=== PATIENT | male | born 1950 | race Caucasian/White ===

== ENCOUNTER → 2019-08-08 | Outpatient (CLI) | payer MEDICARE | END | disposition home or self-care (01) | LOC: CFH 13:19 | PROVIDERS: ATTEND Internal Medicine Hematology & Oncology | DX: C34.11 Malignant neoplasm of upper lobe, right bronchus or lung (principal); R59.1 Generalized enlarged lymph nodes; R91.8 Other nonspecific abnormal finding of lung field | CPT/HCPCS: 71250 ==

== ENCOUNTER 2019-10-03 08:07 | Outpatient (CLI) | payer MEDICARE | END 2019-10-03 23:59 | disposition home or self-care (01) | LOC: ROC 08:07 | PROVIDERS: ATTEND Radiology Radiation Oncology | DX: C34.11 Malignant neoplasm of upper lobe, right bronchus or lung (principal) | CPT/HCPCS: 99214; G0463 ==

== ENCOUNTER → 2019-12-02 | Outpatient (CLI) | payer MEDICARE ==
[~2019-12-02] MED LIST: OMNIPAQUE 350 MG/ML, 75ML BOTTLE ONE
== END | disposition home or self-care (01) ==
LOC: CFH 10:05
PROVIDERS: ATTEND Internal Medicine Hematology & Oncology
DX: C34.11 Malignant neoplasm of upper lobe, right bronchus or lung (principal); R91.8 Other nonspecific abnormal finding of lung field
CPT/HCPCS: 71260; 82565; Q9967

== ENCOUNTER 2020-01-16 07:38 | Outpatient (CLI) | payer MEDICARE | END 2020-01-16 23:59 | disposition home or self-care (01) | LOC: ROC 07:38 | PROVIDERS: ATTEND Radiology Radiation Oncology | DX: C34.91 Malignant neoplasm of unspecified part of right bronchus or lung (principal) | CPT/HCPCS: 99212; G0463 ==

== ENCOUNTER → 2020-04-03 | Outpatient (CLI) | payer MEDICARE | END | disposition home or self-care (01) | LOC: RAD 12:21 | PROVIDERS: ATTEND Internal Medicine Hematology & Oncology | DX: C34.11 Malignant neoplasm of upper lobe, right bronchus or lung (principal); J43.9 Emphysema, unspecified; J98.4 Other disorders of lung; R91.1 Solitary pulmonary nodule; I70.8 Atherosclerosis of other arteries; I25.10 Atherosclerotic heart disease of native coronary artery without angina pectoris | CPT/HCPCS: 71260; Q9967 ==

== ENCOUNTER 2020-04-27 07:34 | Day surgery (SDC) | payer MEDICARE ==
[~2020-04-27] VITALS: Ht 162.6 cm; Wt 62.0 kg
[2020-04-27 08:12] VITALS: BP 143/91
[2020-04-27] MEDS ORDERED: FLUT1BLS3 IH (08:12)
[2020-04-27] MEDS ORDERED: LOSA25TA25 PO (08:12)
[2020-04-27] MEDS ORDERED: METOPROLOL PO (08:12)
[2020-04-27] MEDS ORDERED: PLEASE ENTER HEIGHT AND WEIGHT MC SCH (08:30)
[2020-04-27] MEDS ORDERED: SODIUM CHLORIDE 0.9% 1,000 ML IV SCH (08:30)
[2020-04-27] MEDS ORDERED: LIDOCAINE 1%, 20ML ONE (08:47)
[2020-04-27] MEDS ORDERED: MIDAZOLAM 1 MG/ML, 5ML ONE (09:10)
[2020-04-27] MEDS ORDERED: FENTANYL PF 100 MCG/2ML ONE ×2 (09:10)
[2020-04-27] MEDS ORDERED: FLUMAZENIL 0.1 MG/1 ML, 5ML ONE (09:10)
[2020-04-27] MEDS ORDERED: NALOXONE 1 MG/ML, 2ML ONE (09:11)
== END 2020-04-27 11:00 | disposition home or self-care (01) ==
LOC: OUT 07:34
PROVIDERS: ATTEND Internal Medicine Hematology & Oncology
DX: Z45.2 Encounter for adjustment and management of vascular access device (principal); C34.11 Malignant neoplasm of upper lobe, right bronchus or lung; I10 Essential (primary) hypertension; J44.9 Chronic obstructive pulmonary disease, unspecified; Z79.899 Other long term (current) drug therapy; Z87.891 Personal history of nicotine dependence; Z88.8 Allergy status to other drugs, medicaments and biological substances
CPT/HCPCS: 36590; 77001; 99156; 99157; J2250; J3010; J7030; J2310

== ENCOUNTER 2020-09-16 11:11 | Outpatient (CLI) | payer MEDICARE ==
[~2020-09-16 11:11] MED LIST changes: +FLUT1BLS3 IH; +LOSA25TA25 PO; +METOPROLOL PO; -OMNIPAQUE 350 MG/ML, 75ML BOTTLE ONE
== END 2020-09-16 23:59 | disposition home or self-care (01) ==
LOC: ROC 11:11
PROVIDERS: ATTEND Radiology Radiation Oncology
DX: Z08 Encounter for follow-up examination after completed treatment for malignant neoplasm (principal); Z85.118 Personal history of other malignant neoplasm of bronchus and lung
CPT/HCPCS: G2012; G2251

== ENCOUNTER → 2021-04-12 | Outpatient (CLI) | payer MEDICARE | END | disposition home or self-care (01) | LOC: ROC 07:29 | PROVIDERS: ATTEND Radiology Radiation Oncology | DX: Z08 Encounter for follow-up examination after completed treatment for malignant neoplasm (principal); Z85.118 Personal history of other malignant neoplasm of bronchus and lung ==